=== PATIENT | female | born 1950 | race Caucasian/White ===

== ENCOUNTER 2016-07-15 19:06 | Emergency (ER) | payer MEDICARE, OTHER ==
[2016-07-15] MEDS ORDERED: NORMAL SALINE 1000 ML 1,000 ML IV ONE (19:45)
--- NOTE | 2016-07-15 19:48 | ER Document Report ---
ED Medical Screen (RME) - General Chief Complaint: Flu Symptoms Stated Complaint: WEAKNESS/FEVER TRAVEL OUTSIDE OF THE [place] IN LAST 30 DAYS: No - HPI Notes: 07/15/16 19:46 Patient coming in for cough and flulike symptoms was seen by PCP had chest x- ray done lab work performed showing low potassium. Patient was then given a shot of Rocephin Levaquin patient states she was not diagnosed with UTI pneumonia or any bacterial infection was feeling bad and due to a high white count was given antibiotics. Denies flu shot - Related Data Allergies/Adverse Reactions: clarithromycin [From Biaxin] Allergy (Verified 03/22/14 10:32) codeine [Codeine] Allergy (Verified 03/22/14 10:32) Penicillins Allergy (Verified 03/22/14 10:32) Sulfa (Sulfonamide Antibiotics) Allergy (Verified 03/22/14 10:32) Past Medical History - Past Medical History Cardiac Medical History: Reports: Hx Hypertension Pulmonary Medical History: Reports: Hx Asthma Renal/ Medical History: Denies: Hx Peritoneal Dialysis Musculoskeltal Medical History: Reports Hx Fibromyalgia Psychiatric Medical History: Reports: Hx Depression Past Surgical History: Reports: Hx Appendectomy, Hx Cholecystectomy, Hx Hysterectomy - total, Hx Orthopedic Surgery - bilat knee - Immunizations Hx Diphtheria, Pertussis, Tetanus Vaccination: Yes Review of Systems - Review of Systems Constitutional: Fever Physical Exam - Vital signs Vitals: Temp Pulse Resp BP Pulse Ox 99.1 F 108 H 20 121/66 94 07/15/16 19:16 07/15/16 19:16 07/15/16 19:16 07/15/16 19:16 07/15/16 19:16 - Respiratory Respiratory status: No respiratory distress Chest status: Nontender Breath sounds: Normal Chest palpation: Normal Course - Vital Signs Vital signs: Temp Pulse Resp BP Pulse Ox 99.1 F 108 H 20 121/66 94 07/15/16 19:16 07/15/16 19:16 07/15/16 19:16 07/15/16 19:16 07/15/16 19:16
[2016-07-15 20:18] LABS: ABSOLUTE LYMPHOCYTES (AUTO) 1.4 10^3/uL (0.5-4.7); ABSOLUTE MONOCYTES (AUTO) 0.9 10^3/uL (0.1-1.4); ABSOLUTE NEUT (AUTO) 7.1 10^3/uL (1.7-8.2); BASOPHILS % (AUTO) 0.3 % (0-2); EOSINOPHILS % (AUTO) 0.2 % (0-6); HEMATOCRIT 38.9 % (36.0-47.0); HEMOGLOBIN 13.2 g/dL (12.0-15.5); HGB HCT DIFFERENCE 0.7; LYMPHOCYTES % (AUTO) 14.5 % (13-45); MEAN CORPUSCULAR HEMOGLOBIN 28.3 pg (27.0-33.4); MEAN CORPUSCULAR HGB CONC 33.8 g/dL (32.0-36.0); MEAN CORPUSCULAR VOLUME 84 fl (80-97); MONOCYTES % (AUTO) 9.4 % (3-13); RED BLOOD COUNT 4.65 10^6/uL (3.72-5.28); RED CELL DISTRIBUTION WIDTH 13.6 % (11.5-14.0); SEGMENTED NEUTROPHILS % (AUTO) 75.6 % (42-78); WHITE BLOOD COUNT 9.3 10^3/uL (4.0-10.5)
[2016-07-15 20:32] LABS: ALANINE AMINOTRANSFERASE 36 U/L (9-52); ALBUMIN 3.8 g/dL (3.5-5.0); ALKALINE PHOSPHATASE 78 U/L (38-126); ANION GAP 15 (5-19); ASPARTATE AMINO TRANSFERASE 34 U/L (14-36); BILIRUBIN,DIRECT 0.3 mg/dL (0.0-0.4); BILIRUBIN,TOTAL 0.6 mg/dL (0.2-1.3); BLOOD UREA NITROGEN 10 mg/dL (7-20); CALCIUM 9.1 mg/dL (8.4-10.2); CARBON DIOXIDE 25 mmol/L (22-30); CHLORIDE 97 mmol/L (98-107); CREATININE RESULT 0.72 mg/dL (0.52-1.25); GLUCOSE 104 mg/dL (75-110); LIPASE 66.4 U/L (23-300); POTASSIUM 3.6 mmol/L (3.6-5.0); SODIUM 136.8 mmol/L (137-145); TOTAL PROTEIN 6.9 g/dL (6.3-8.2)
--- NOTE | 2016-07-15 21:26 | ER Document Report ---
ED Flu Like - General Chief Complaint: Flu Symptoms Stated Complaint: WEAKNESS/FEVER Time seen by provider: 21:24 Mode of Arrival: Ambulatory Information source: Patient Notes: This is a 66-year-old female with a history of sinusitis in the past who presents to the emergency room with fever, chills, headache, cough, congestion, nasal stuffiness. TRAVEL OUTSIDE OF THE [place] IN LAST 30 DAYS: No - HPI Onset: Just prior to arrival Timing/Duration: Constant Quality of pain: No pain Severity: None Pain Level: Denies Associated symptoms: None, Nonproductive cough, Fever. denies: Shortness of breath - Related Data Allergies/Adverse Reactions: clarithromycin [From Biaxin] Allergy (Verified 03/22/14 10:32) codeine [Codeine] Allergy (Verified 03/22/14 10:32) Penicillins Allergy (Verified 03/22/14 10:32) Sulfa (Sulfonamide Antibiotics) Allergy (Verified 03/22/14 10:32) Past Medical History - General Information source: Patient - Social History Smoking Status: Never Smoker Cigarette use (# per day): No Chew tobacco use (# tins/day): No Frequency of alcohol use: None Drug Abuse: None Lives with: Family Family History: Reviewed & Not Pertinent Patient has suicidal ideation: No Patient has homicidal ideation: No - Past Medical History Cardiac Medical History: Reports: Hx Hypertension Pulmonary Medical History: Reports: Hx Asthma Renal/ Medical History: Denies: Hx Peritoneal Dialysis Musculoskeltal Medical History: Reports Hx Fibromyalgia Psychiatric Medical History: Reports: Hx Depression Past Surgical History: Reports: Hx Appendectomy, Hx Cholecystectomy, Hx Hysterectomy - total, Hx Orthopedic Surgery - bilat knee - Immunizations Hx Diphtheria, Pertussis, Tetanus Vaccination: Yes Review of Systems - Review of Systems Notes: Review of systems: Constitutional: Positive for fever and chills. EENT: See H&P Cardiovascular: Denies chest pain, palpitations, dyspnea or edema. Respiratory: See H&P Abdomen: Denies abdominal pain, nausea, vomiting, diarrhea. Denies BRBPR or melena. Genitourinary: Denies dysuria, pyuria, hematuria, flank pain. Musculoskeletal: denies joint pain or swelling, denies back pain. Neurologic: Positive for headache. Denies photophobia, neck stiffness, weakness. Denies loss of bowel or bladder function. Denies saddle anesthesia. Skin: Denies rash, lesions. Physical Exam - Vital signs Vitals: Temp Pulse Resp BP Pulse Ox 99.1 F 108 H 20 121/66 94 07/15/16 19:16 07/15/16 19:16 07/15/16 19:16 07/15/16 19:16 07/15/16 19:16 Notes: Physical exam: GENERAL: 66-year-old female, alert and oriented 3, congested. HEAD: Atraumatic, normocephalic. EYES: Pupils equal round and reactive to light, extraocular movements intact, sclera anicteric, conjunctiva are normal. ENT: TMs normal, nares patent, oropharynx clear without exudates. Moist mucous membranes. NECK: Normal range of motion, supple without lymphadenopathy or JVD. LUNGS: Breath sounds clear to auscultation bilaterally and equal. No wheezes rales or rhonchi. HEART: Regular rate and rhythm without murmurs, rubs or gallops. ABDOMEN: Soft, normoactive bowel sounds. No tenderness to palpation. No guarding, no rebound. No masses appreciated. EXTREMITIES: Normal range of motion, no pitting or edema. No clubbing or cyanosis. NEUROLOGICAL: Cranial nerves II through XII grossly intact. Normal speech, normal gait. PSYCH: Normal mood, normal affect. SKIN: Warm, Dry, normal turgor, no rashes or lesions noted. Course - Vital Signs Vital signs: Temp Pulse Resp BP Pulse Ox 99.1 F 108 H 20 121/66 94 07/15/16 19:16 07/15/16 19:16 07/15/16 19:16 07/15/16 19:16 07/15/16 19:16 - Laboratory Result Diagrams: 07/15/16 19:50 07/15/16 19:50 Laboratory results interpreted by me: 07/15/16 07/15/16 19:50 21:47 Sodium 136.8 L Chloride 97 L Urine Protein 30 H Urine Blood SMALL H - Diagnostic Test Radiology reviewed: Image reviewed, Reports reviewed - Chest x-ray shows no infiltrates Discharge - Discharge Clinical Impression: influenza-like illness Condition: Stable Disposition: HOME, SELF-CARE Additional Instructions: Recommendations: Asked, drink plenty of fluids, Tylenol for fever. He may take Advil. Try simply saline nasal spray in the shower each day to keep the sinus passages open. Complete the course of antibiotics that you primary care doctor had prescribed. Your symptoms are most likely due to a virus and so it will have to take its course. Return to the emergency room for shortness of breath, not tolerating fluids or any concerns he getting worse. Referrals: SAURAV OWEN MD [Primary Care Provider] - Follow up in 3-5 days
[2016-07-15 22:03] LABS: APPEARANCE,URINE SLIGHTLY-CLOUDY; BILIRUBIN,URINE NEGATIVE (NEGATIVE); GLUCOSE, URINE NEGATIVE (NEGATIVE); KETONES,URINE NEGATIVE (NEGATIVE); LEUKOCYTE ESTERASE,URINE NEGATIVE (NEGATIVE); NITRITE,URINE NEGATIVE (NEGATIVE); PROTEIN,URINE 30 mg/dL (NEGATIVE); URINE SPECIFIC GRAVITY 1.019; UROBILINOGEN,URINE NEGATIVE mg/dL (<2.0)
[2016-07-15 23:32] VITALS: BP 137/72
== END 2016-07-15 23:22 | disposition home or self-care (01) ==
LOC: ER 19:06
DX: R53.1 Weakness (principal); R50.9 Fever, unspecified; R51 Headache; R05 Cough; R09.81 Nasal congestion
CPT/HCPCS: 36415; 71020; 80053; 81001; 83690; 85025; 87804; 99283